=== PATIENT | female | born 1985 | race Caucasian/White ===

== ENCOUNTER 2017-06-13 07:00 | Inpatient (IN) | payer BC, SELFPAY ==
[2017-06-13] MEDS: Mag Hydrox/Al Hydrox/Simeth 30 ML UDC PO ×2 (10:31→17:10)
[2017-06-13] MEDS: Lactated Ringers 1,000 ML 50 ML IV ×3 (13:40→19:01)
[2017-06-13 13:41] VITALS: BMI 45.8
[2017-06-13 13:49] LABS: Hematocrit 38.7 % (37-47); Hemoglobin 12.4 g/dl (12.0-15.0); Mean Corpuscular Hgb 28.6 pg (27.0-32.0); Mean Corpuscular Volume 89.2 fL (81-99); Mean Platelet Vol. 10.4 fl (6.2-12.0); Platelet Count 314 K/mm3 (150-450); RBC Distribution Width CV 13.6 % (11.6-14.6); RBC Distribution Width SD 44.7 fl (35.1-43.9); Red Blood Count 4.34 M/mm3 (4.2-5.4); White Blood Count 13.3 K/mm3 (4.4-11.0)
[2017-06-13 13:52] LABS: Scan Indicated on CBC? Y/N NO
[2017-06-13] MEDS: Oxytocin 30 units/NS 500 ml 30 UNITS/500 ML IV.SOLN IV (14:15)
--- NOTE | 2017-06-13 15:02 | PCM.PN.OB ---
Subjective: Seems comfortable. Not feeling contractions strongly. Objective: Afeb VSS FHR tracing Cat 1 - Physical Exam General: Alert, Oriented x3, Cooperative, No apparent distress Lungs: Clear to auscultation, Normal air movement Cardiovascular: Regular rate, Regular Rhythm Abdomen: Soft, Non Tender, Non-Distended, Gravid, Appropriate for Gestational Age Extremities: No edema Skin: No rashes Neurological: Neuro grossly intact Psych/Mental Status: Normal Affect Comment: CE 5-6 80% -2 Weight: 309 lb 15.519 oz Body Mass Index (BMI) 45.8 Laboratory Tests Past 24 Hrs 06/13/17 06/13/17 13:20 13:20 WBC 13.3 H RBC 4.34 Hgb 12.4 Hct 38.7 MCV 89.2 MCH 28.6 MCHC 32.0 RDW 13.6 RDW Differential 44.7 H Plt Count 314 MPV 10.4 Blood Type A POSITIVE Antibody Screen NEGATIVE Assessment/Plan AROM with clear fluid noted. Continue pitocin augmentation.
--- NOTE | 2017-06-13 18:53 | PCM.DCVAG ---
Discharge Diet: No Restrictions Discharge Activity: Return to Normal Activity, May Drive, May Shower Return to work on:: 08/10/17 May resume sexual activity in: 4-6 weeks Call your doctor if your incision/area has: Sudden Increased Bleeding, Increased Pain/ Swelling, Increased Redness, Foul Smelling Discharge Call your doctor if you observe: Fever of 101 or Higher, Inability to urinate, Inability to have a bowel movement, Using more than one pad per hour, Chest pain, Calf discomfort, Uncontrolled pain Additional Instructions: If you experience any of the following, contact your healthcare provider. Bleeding that soaks a pad every hour for 2 hours Fever 100.4 or higher Unrelieved incision or abdominal pain Swelling, redness, discharge or bleeding from your incision or episiotomy site Your incision begins to separate Problems urinating (including inability to urinate or burning while urinating). Visual changes Severe headache Flu-like symptoms Pain or redness in one of both of your breasts Pain, warmth, tenderness or swelling in your legs, especially the calf area Frequent nausea and vomiting Symptoms of depression or anxiety If you experience any of the following, call 911 or go to the nearest Emergency Room. Chest pain Problems breathing Seizure activity Partial or complete paralysis of a body part, slurred speech, weakness or drooping of the face, or a sudden inability to walk or hold your balance Allergies/Adverse Reactions: Allergies No Known Allergies Allergy (Verified 06/13/17 13:43) Medications to take at Discharge Ibuprofen [Motrin] 800 mg PO TID PRN PRN #30 tab 06/13/17 Tablet 1 tab PO DAILY 06/13/17 The following prescriptions were given: Ibuprofen [Motrin] 800 mg PO TID PRN PRN #30 tab PRN Reason: pain or cramping Please Follow Up With: Cortez Renee MD When: 6 weeks Primary Care Physician: Care Physician,No Primary [Primary Care Provider] - Proposed Discharge Date: 06/15/17
--- NOTE | 2017-06-13 18:54 | DCINST_ITS ---
Discharge Diet: No Restrictions Discharge Activity: Return to Normal Activity, May Drive, May Shower Return to work on:: 08/10/17 May resume sexual activity in: 4-6 weeks Call your doctor if your incision/area has: Sudden Increased Bleeding, Increased Pain/ Swelling, Increased Redness, Foul Smelling Discharge Call your doctor if you observe: Fever of 101 or Higher, Inability to urinate, Inability to have a bowel movement, Using more than one pad per hour, Chest pain , Calf discomfort, Uncontrolled pain Additional Instructions: If you experience any of the following, contact your healthcare provider. * Bleeding that soaks a pad every hour for 2 hours * Fever 100.4 or higher * Unrelieved incision or abdominal pain * Swelling, redness, discharge or bleeding from your incision or episiotomy site * Your incision begins to separate * Problems urinating (including inability to urinate or burning while urinating) . * Visual changes * Severe headache * Flu-like symptoms * Pain or redness in one of both of your breasts * Pain, warmth, tenderness or swelling in your legs, especially the calf area * Frequent nausea and vomiting * Symptoms of depression or anxiety If you experience any of the following, call 911 or go to the nearest Emergency Room. * Chest pain * Problems breathing * Seizure activity * Partial or complete paralysis of a body part, slurred speech, weakness or drooping of the face, or a sudden inability to walk or hold your balance Allergies/Adverse Reactions: Allergies No Known Allergies Allergy (Verified 06/13/17 13:43) Medications to take at Discharge Ibuprofen [Motrin] 800 mg PO TID PRN PRN #30 tab 06/13/17 Tablet 1 tab PO DAILY 06/13/17 The following prescriptions were given: Ibuprofen [Motrin] 800 mg PO TID PRN PRN #30 tab PRN Reason: pain or cramping Please Follow Up With: Cortez Renee MD When: 6 weeks Primary Care Physician: Care Physician,No Primary [Primary Care Provider] - Proposed Discharge Date: 06/15/17
--- NOTE | 2017-06-13 18:55 | PCM.PN.OB ---
Subjective: Comfortable Objective: Afeb VSS FHR tracing Cat 1 - Physical Exam General: Alert, Oriented x3, Cooperative, No apparent distress Comment: CE FD/0 station Weight: 309 lb 15.519 oz Body Mass Index (BMI) 45.8 Intake and Output for Last 24 Hours 06/11/17 06/12/17 06/13/17 23:59 23:59 23:59 Intake Total 2310 / 2310 Output Total 300 / 300 Balance 2009 Laboratory Tests Past 24 Hrs 06/13/17 06/13/17 13:20 13:20 WBC 13.3 H RBC 4.34 Hgb 12.4 Hct 38.7 MCV 89.2 MCH 28.6 MCHC 32.0 RDW 13.6 RDW Differential 44.7 H Plt Count 314 MPV 10.4 Blood Type A POSITIVE Antibody Screen NEGATIVE Assessment/Plan Patient to start pushing efforts.
[2017-06-13] MEDS: Oxytocin 30 units/NS 500 ml 30 UNITS/500 ML IV.SOLN 334 UNITS IV (19:20)
[2017-06-13] MEDS: Oxytocin 30 units/NS 500 ml 30 UNITS/500 ML IV.SOLN 167 UNITS IV (19:50)
--- NOTE | 2017-06-13 19:51 | PCM.OB.VAG ---
- Problem List (1) Elective induction of labor planned Status: Acute Vaginal Delivery Maternal Presentation: Elective Induction 40w1d ega admitted for elective induction of labor. Uncomplicated . Method of Induction: Pitocin Amniotic Membrane Rupture Type: Artificial Rupture of Membrane time: 1400 Amniotic Fluid Description: Clear Final GRETA: 06/12/17 Final GRETA Source: US <20 weeks Gestational age: 40 Weeks and 1 Days Date of Procedure: 06/13/17 Pre-Operative Diagnosis: Labor Post-Operative Diagnosis: same Surgery/ Procedure Performed: Vacuum Assisted Vaginal Delivery Anesthesiologist: Vern Lara Type of Anesthesia: Epidural Description of Procedure: Alli progressed to fully dilated. She pushed for about 30 minutes with repetitive deep variable contractions with heart rate dipping to 60 to 70s. Due to repetitive nature of decelerations decision was made to assist the delivery with the Kiwi device. Procedures and risks were explained to the patient and father before placement. The vertex was at +3 station at this point. The Kiwi was placed vacuum applied and over one contraction the baby's head was delivered with the vacuum device. The vacuum device was removed and the baby's body was delivered without difficulty. Delayed cord clamping was employed. There was an active cry shortly after delivery. The cord was then clamped and cut. The baby was then placed on Mom's chest. Apgars were 9/10. The placenta was delivered spontaneously intact with an eccentrically located 3VC. The uterus contracted well. Inspection revealed an intact perineum, upper vagina and cervix. A small posterior vaginal first degree tear was repaired with 2-0 Vicryl suture. Presentation: Vertex Placental Delivery Description: Spontaneous Placenta Disposition: [facility] Percentage of Placenta Abruption: 0 Cord Vessel Description: 3 Vessels Nuchal Cord Compression: Without compression Cord Entanglement: None Drain: [place]ruz to straight drain Estimated Blood Loss: 300cc A gender: Male (1 minute): 9 (5 minute): 10 Episiotomy Description: None Laceration: Midline, Vaginal Extension/lac, 1st degree Medications given after delivery: IV Pitocin Complications: None
[2017-06-14] MEDS: Acetaminophen 500 MG Tablet 1000 MG PO (03:41)
[2017-06-14 03:45] VITALS: BP 127/65; PULSE 100; RESP 18; TEMP 36.2
[2017-06-14 05:39] LABS: Hematocrit 38.3 % (37-47); Hemoglobin 12.3 g/dl (12.0-15.0); Mean Corp Hgb Conc 32.1 g/gl (32-36); Mean Corpuscular Hgb 28.9 pg (27.0-32.0); Mean Corpuscular Volume 89.9 fL (81-99); Mean Platelet Vol. 10.2 fl (6.2-12.0); Platelet Count 283 K/mm3 (150-450); RBC Distribution Width CV 13.7 % (11.6-14.6); RBC Distribution Width SD 44.3 fl (35.1-43.9); Red Blood Count 4.26 M/mm3 (4.2-5.4); White Blood Count 14.7 K/mm3 (4.4-11.0)
[2017-06-14 05:58] LABS: Scan Indicated on CBC? Y/N NO
[2017-06-14] MEDS: Senna/Docusate Sodium 1 Tablet PO (08:07)
[2017-06-14] MEDS: Ibuprofen 600 MG Tablet PO ×2 (08:10→16:16)
[2017-06-14 08:19] VITALS: BP 121/68; PULSE 85; RESP 18; TEMP 36.6
--- NOTE | 2017-06-14 09:38 | PCM.PN.OB ---
Patient Problems: Active and Suspected Problems Elective induction of labor planned (Acute) Subjective: No complaints. Bleeding light. Breast feeding. Objective: Afeb VSS - Physical Exam General: Alert, Oriented x3, Cooperative, No apparent distress Lungs: Clear to auscultation, Normal air movement Cardiovascular: Regular rate, Regular Rhythm Abdomen: Soft, Non Tender, Non-Distended Extremities: No edema Skin: No rashes Neurological: Neuro grossly intact Psych/Mental Status: Normal Affect Comment: Lochia normal PP day#1. Vital Signs Temp Pulse Resp BP 97.9 F 85 18 121/68 H 06/14/17 08:19 06/14/17 08:19 06/14/17 08:19 06/14/17 08:19 Oxygen Delivery Method Room Air Weight: 309 lb 15.519 oz Body Mass Index (BMI) 45.8 Intake and Output for Last 24 Hours 06/12/17 06/13/17 06/14/17 23:59 23:59 23:59 Intake Total 2310 / 2310 Output Total 300 / 300 1200 / 1200 Balance 2009 -1200 / -1200 Laboratory Tests Past 24 Hrs 06/13/17 06/13/17 06/14/17 13:20 13:20 05:30 WBC 13.3 H 14.7 H RBC 4.34 4.26 Hgb 12.4 12.3 Hct 38.7 38.3 MCV 89.2 89.9 MCH 28.6 28.9 MCHC 32.0 32.1 RDW 13.6 13.7 RDW Differential 44.7 H 44.3 H Plt Count 314 283 MPV 10.4 10.2 Blood Type A POSITIVE Antibody Screen NEGATIVE Assessment/Plan Active and Suspected Problems Elective induction of labor planned (Acute) Doing well on PP day#1. Continue routine PP care.
[2017-06-14 12:00] VITALS: BP 120/70; PULSE 77; RESP 18; TEMP 36.1
[2017-06-14 16:00] VITALS: BP 120/60; PULSE 83; RESP 18; TEMP 36.1
[2017-06-14 20:10] VITALS: BP 120/65; PULSE 90; RESP 16; TEMP 36
[2017-06-15 02:30] VITALS: BP 107/57; PULSE 86; RESP 16; TEMP 36.2
[2017-06-15] MEDS: Ibuprofen 600 MG Tablet PO ×2 (02:46→08:18)
--- NOTE | 2017-06-15 07:36 | PCM.PN.OB ---
Patient Problems: Active and Suspected Problems Elective induction of labor planned (Acute) Subjective: No complaints. Bleeding light. Breast feeding. Objective: Afeb VSS - Physical Exam General: Alert, Oriented x3, Cooperative, No apparent distress Lungs: Clear to auscultation, Normal air movement Cardiovascular: Regular rate, Regular Rhythm Abdomen: Soft, Non-Distended, - - Fundus nontender Extremities: No edema, No Calf Tenderness Psych/Mental Status: Normal Affect Comment: Lochia light Vital Signs Temp Pulse Resp BP 97.2 F L 86 16 107/57 L 06/15/17 02:30 06/15/17 02:30 06/15/17 02:30 06/15/17 02:30 Oxygen Delivery Method Room Air Weight: 309 lb 15.519 oz Body Mass Index (BMI) 45.8 Intake and Output for Last 24 Hours 06/13/17 06/14/17 06/15/17 23:59 23:59 23:59 Intake Total 2310 / 2310 Output Total 300 / 300 1200 / 1200 Balance 2009 -1200 / -1200 Assessment/Plan Active and Suspected Problems Elective induction of labor planned (Acute) Doing well on PP day#2. Cleared for discharge home today. Home going instructions and warnings given.
--- NOTE | 2017-06-15 07:39 | DS.PCM_ITS ---
Discharge Date and Diagnosis - Problem List Patient Problems: Active and Suspected Problems Elective induction of labor planned (Acute) Date of Admission: 06/13/17 Date of Discharge: 06/15/17 - Primary Discharge Diagnosis Active and Suspected Problems Elective induction of labor planned (Acute), S/P vacuum assisted vaginal delivery Hospital Course and Treatment Consultations 06/13/17 07:08 Consult: Anesthesia Routine Comment: Reason For Exam: LABOR Operations: None Procedures: - - Epidural, pitocin induction, vacuum assisted delivery. Summary of Care Provided: The patient is a 31 year old F [admitted for scheduled elective induction. Induction resulted in uncomplicated vacuum delivery of healthy . Post course uncomplicated.] Discharge Diet: No Restrictions Discharge Activity: Return to Normal Activity, May Drive, May Shower Return to work on:: 08/10/17 May resume sexual activity in: 4-6 weeks Call your doctor if your incision/area has: Sudden Increased Bleeding, Increased Pain/ Swelling, Increased Redness, Foul Smelling Discharge Call your doctor if you observe: Fever of 101 or Higher, Inability to urinate, Inability to have a bowel movement, Using more than one pad per hour, Chest pain , Calf discomfort, Uncontrolled pain Home Medications: Medications to take at Discharge Ibuprofen [Motrin] 800 mg PO TID PRN PRN #30 tab 06/13/17 Tablet 1 tab PO DAILY 06/13/17 Following Prescrptions Were Given to Patient: Ibuprofen [Motrin] 800 mg PO TID PRN PRN #30 tab PRN Reason: pain or cramping Primary Care Physician: Care Physician,No Primary [Primary Care Provider] - Please Follow Up With: Cortez Renee MD When: 6 weeks Disposition: Home Minutes spent on discharge:: 15 Patient Condition:: Good Meaningful Use Info Meaningful Use Diagnoses (Choose all that apply): None applicable
[2017-06-15 08:23] VITALS: BP 116/66; PULSE 80; RESP 18; TEMP 36.2
== END 2017-06-15 09:30 | disposition home or self-care (01) | DRG 775 ==
PROVIDERS: Admitting Provider Obstetrics & Gynecology; Visit Provider Obstetrics & Gynecology
DX: O76 Abnormality in fetal heart rate and rhythm complicating labor and delivery (principal); O70.0 First degree perineal laceration during delivery; O99.333 Smoking (tobacco) complicating pregnancy, third trimester; F17.210 Nicotine dependence, cigarettes, uncomplicated; O75.89 Other specified complications of labor and delivery; Z37.0 Single live birth; Z3A.40 40 weeks gestation of pregnancy
CPT/HCPCS: 59025; 59050; 85027; 86850; 86900; 99218; J7120; G0378

== ENCOUNTER 2017-06-19 09:40 | Outpatient (CLI) | payer BC, SELFPAY | END 2017-06-19 10:40 | disposition home or self-care (01) | LOC: WP 09:45 → WPOUT 09:45 | PROVIDERS: Visit Provider Obstetrics & Gynecology | DX: Z39.1 Encounter for care and examination of lactating mother (principal) | CPT/HCPCS: 96152 ==

== ENCOUNTER → 2017-07-21 13:26 | Outpatient (CLI) | payer BC, SELFPAY ==
[2017-07-21 14:21] LABS: hCG Titer Quant., Serum < 1 mIU/mL (<9 non-preg)
[2017-07-22 09:07] LABS: Progesterone Level 0.39 ng/mL (See Comment)
== END ==
PROVIDERS: Visit Provider Obstetrics & Gynecology
DX: Z30.014 Encounter for initial prescription of intrauterine contraceptive device (principal)
CPT/HCPCS: 36415; 84144; 84702

== ENCOUNTER → 2017-07-28 16:22 | Outpatient (CLI) | payer BC, SELFPAY ==
[2017-07-28 21:48] LABS: Chlamydia Trachomatis by PCR Negative (Negative); Neisserai gonorrhoeae by PCR Negative (Negative); Probe Check PASS; Sample Adequacy Control PASS; Specimen Processing Control PASS
== END ==
PROVIDERS: Visit Provider Obstetrics & Gynecology
DX: Z30.430 Encounter for insertion of intrauterine contraceptive device (principal); Z11.3 Encounter for screening for infections with a predominantly sexual mode of transmission
CPT/HCPCS: 87491; 87591